=== PATIENT | male | born 1995 ===

== ENCOUNTER 2018-04-10 21:36 | Emergency (ER) | payer BC, SELFPAY ==
[2018-04-10 21:46] VITALS: BP 158/88; PULSE 75; RESP 17; TEMP 36.8; O2SAT 96
[2018-04-10] MEDS: Albuterol HFA 8 GM 60 PUFF INH IH (22:12)
[2018-04-10] MEDS: Inhaler, Assist Device 1 EACH MC (22:14)
--- NOTE | 2018-04-10 22:33 | W.ED.GENAD ---
Discharge Plan Disposition Patient Disposition: HOME Condition: Improving Discharge Details Chief Complaint: RespSymp Clinical Impression: Acute asthma flare Primary Care Provider: None,None ED Provider: Torey Gonzalez Home Meds and New Rx's Prescriptions: Continued albuterol sulfate 90 mcg/actuation Hfa Aerosol Inhaler RF: 0 cetirizine 10 mg Capsule 10 mg PO DAILY RF: 0 Discharge Instructions Instructions: Asthma (ED) Additional Instructions: Use your albuterol inhaler as needed and feel free to return to the emergency department for any new or worsening symptoms otherwise follow-up with your primary care provider if your asthma continues or if you have any further concerns Referrals: Primary Care Provider [Outside] (As needed for reassessment) Discharge Data Discharge Date/Time-TO BE ENTERED AT DEPARTURE: 04/10/18 22:42 Medical Decision Making Patient presenting to the emergency department for chief complaint of asthma flareup. Patient reports that he is here visiting his girlfriend's parents and that they have cats in the home and he is allergic to cats. Patient states that he forgot his inhaler but has been taking Benadryl and Zyrtec but they have not been fully helping. Patient denies any fever chills, cold symptoms, or other medical complaints at this time. Physical exam shows diffuse very wheezes throughout but otherwise unremarkable examination. Patient given albuterol inhaler with spacer and 2 puffs were given. Patient was reassessed and had clear lung sounds throughout and patient stating significant improvement of his symptoms. Patient was encouraged to use inhaler as needed and return for any new or worsening symptoms otherwise I do not feel that patient needs any steroids or other therapy at this time. After discussion of diagnosis and plan of care patient has no further needs, questions, or concerns and states clear understanding to return to the emergency department for any worsening symptoms. HPI General Mode of arrival: ambulatory. Date/Time Provider Initiated Documentation: 04/10/18 21:54. Limitations to Documentation: no limitations. Information obtained by: patient and RN notes reviewed. History of Present Illness 22 year old M presents to the emergency department with the chief complaint of Asthma flare, Quality is described as other (Denies pain or discomfort), Patient started experiencing this day(s) (1) and it has been constant. No relieving factors improve symptom(s), No exacerbating factors reported . Patient notes no other symptoms.. Patient did receive the following treatments prior to arrival, other (Benadryl and Zyrtec) Related Data Home Medications Medication Instructions Recorded Confirmed albuterol sulfate 04/10/18 cetirizine 10 mg PO DAILY 04/10/18 04/10/18 Allergies Allergy/AdvReac Type Severity Reaction Status Date / Time cat dander Allergy Unverified 04/10/18 21:48 dust mites Allergy Uncoded 04/10/18 21:48 General Stated Complaint: RespSymp OCTAVIA: 4 Review of Systems Constitutional Denies body ache(s), Denies chills, Denies fever(s) and Denies headache(s) ENT Denies otalgia, Denies headache(s), Denies nasal congestion, Denies nasal discharge, Denies sinus pressure and Denies sore throat Cardiovascular Denies chest pain and Reports dyspnea Respiratory Reports as per HPI, Denies change in phlegm color, Denies chest congestion, Denies cough, Reports dyspnea, Denies stridor and Reports wheezing Integumentary/Breasts Denies rash Neurologic Denies headache(s) Allergic/Immunologic Reports wheezing PFSH Medical History Asthma (Chronic) Social History Smoking/Tobacco Use Status: Never Exam Const General: cooperative, no acute distress and not ill appearing Orientation: alert, awake and oriented x3 HENMT Mouth: moist mucous membranes Resp Effort & Inspection: normal respiratory effort, able to speak in complete sentences and no respiratory distress Auscultation: wheezes expiratory wheezes and scattered wheezes Cardio Rate: regular rate Rhythm: regular rhythm Heart Sounds: S1 normal and S2 normal Skin General skin exam: no rashes or lesions noted Neuro General: alert, awake, oriented x3, moves all extremities and no focal motor deficits Course Vital Signs Temperature 36.8 C 04/10/18 21:46 Pulse 75 04/10/18 21:46 Respiratory Rate 17 04/10/18 21:46 Blood Pressure 158/88 H 04/10/18 21:46 Pulse Oximetry 96 04/10/18 21:46 Temperature 36.8 C 04/10/18 21:46 Temperature Source Temporal Artery Scan 04/10/18 21:46 Pulse 75 04/10/18 21:46 Respiratory Rate 17 04/10/18 21:46 Respiratory Effort 04/10/18 21:49 Blood Pressure 158/88 H 04/10/18 21:46 Blood Pressure Position Sitting 04/10/18 21:46 Pulse Oximetry 96 04/10/18 21:46 Oxygen Delivery Method Room Air 04/10/18 21:46 Oxygen Flow Rate 0 04/10/18 21:46 Pain Level 0 04/10/18 21:46
--- NOTE | 2018-04-10 22:37 | ED.GENADUL_ITS ---
Discharge Plan Disposition Patient Disposition: HOME Condition: Improving Discharge Details Chief Complaint: RespSymp Clinical Impression: Acute asthma flare Primary Care Provider: None,None ED Provider: Torey Gonzalez Home Meds and New Rx's Prescriptions: Continued albuterol sulfate 90 mcg/actuation Hfa Aerosol Inhaler RF: 0 cetirizine 10 mg Capsule 10 mg PO DAILY RF: 0 Discharge Instructions Instructions: Asthma (ED) Additional Instructions: Use your albuterol inhaler as needed and feel free to return to the emergency department for any new or worsening symptoms otherwise follow-up with your primary care provider if your asthma continues or if you have any further concerns Referrals: Primary Care Provider [Outside] (As needed for reassessment) Discharge Data Discharge Date/Time-TO BE ENTERED AT DEPARTURE: 04/10/18 22:42 Medical Decision Making Patient presenting to the emergency department for chief complaint of asthma flareup. Patient reports that he is here visiting his girlfriend's parents and that they have cats in the home and he is allergic to cats. Patient states that he forgot his inhaler but has been taking Benadryl and Zyrtec but they have not been fully helping. Patient denies any fever chills, cold symptoms, or other medical complaints at this time. Physical exam shows diffuse very wheezes throughout but otherwise unremarkable examination. Patient given albuterol inhaler with spacer and 2 puffs were given. Patient was reassessed and had clear lung sounds throughout and patient stating significant improvement of his symptoms. Patient was encouraged to use inhaler as needed and return for any new or worsening symptoms otherwise I do not feel that patient needs any steroids or other therapy at this time. After discussion of diagnosis and plan of care patient has no further needs, questions, or concerns and states clear understanding to return to the emergency department for any worsening symptoms. HPI General Mode of arrival: ambulatory . Date/Time Provider Initiated Documentation: 04/10/18 21:54 . Limitations to Documentation: no limitations . Information obtained by: patient and RN notes reviewed . History of Present Illness 22 year old M presents to the emergency department with the chief complaint of Asthma flare, Quality is described as other (Denies pain or discomfort), Patient started experiencing this day(s) (1) and it has been constant. No relieving factors improve symptom(s), No exacerbating factors reported . Patient notes no other symptoms.. Patient did receive the following treatments prior to arrival, other (Benadryl and Zyrtec) Related Data Home Medications Medication Instructions Recorded Confirmed albuterol sulfate 04/10/18 cetirizine 10 mg PO DAILY 04/10/18 04/10/18 Allergies Allergy/AdvReac Type Severity Reaction Status Date / Time cat dander Allergy Unverified 04/10/18 21:48 dust mites Allergy Uncoded 04/10/18 21:48 General Stated Complaint: RespSymp OCTAVIA: 4 Review of Systems Constitutional Denies body ache(s), Denies chills, Denies fever(s) and Denies headache(s) ENT Denies otalgia, Denies headache(s), Denies nasal congestion, Denies nasal discharge, Denies sinus pressure and Denies sore throat Cardiovascular Denies chest pain and Reports dyspnea Respiratory Reports as per HPI, Denies change in phlegm color, Denies chest congestion, Denies cough, Reports dyspnea, Denies stridor and Reports wheezing Integumentary/Breasts Denies rash Neurologic Denies headache(s) Allergic/Immunologic Reports wheezing PFSH Medical History Asthma (Chronic) Social History Smoking/Tobacco Use Status: Never Exam Const General: cooperative, no acute distress and not ill appearing Orientation: alert, awake and oriented x3 HENMT Mouth: moist mucous membranes Resp Effort & Inspection: normal respiratory effort, able to speak in complete sentences and no respiratory distress Auscultation: wheezes expiratory wheezes and scattered wheezes Cardio Rate: regular rate Rhythm: regular rhythm Heart Sounds: S1 normal and S2 normal Skin General skin exam: no rashes or lesions noted Neuro General: alert, awake, oriented x3, moves all extremities and no focal motor deficits Course Vital Signs Temperature 36.8 C 04/10/18 21:46 Pulse 75 04/10/18 21:46 Respiratory Rate 17 04/10/18 21:46 Blood Pressure 158/88 H 04/10/18 21:46 Pulse Oximetry 96 04/10/18 21:46 Temperature 36.8 C 04/10/18 21:46 Temperature Source Temporal Artery Scan 04/10/18 21:46 Pulse 75 04/10/18 21:46 Respiratory Rate 17 04/10/18 21:46 Respiratory Effort 04/10/18 21:49 Blood Pressure 158/88 H 04/10/18 21:46 Blood Pressure Position Sitting 04/10/18 21:46 Pulse Oximetry 96 04/10/18 21:46 Oxygen Delivery Method Room Air 04/10/18 21:46 Oxygen Flow Rate 0 04/10/18 21:46 Pain Level 0 04/10/18 21:46
[2018-04-10 22:40] VITALS: BP 140/74; PULSE 75; RESP 17; TEMP 36.8; O2SAT 96
== END 2018-04-10 22:42 | disposition home or self-care (01) ==
LOC: ER 22:54
PROVIDERS: Emergency Provider Nurse Practitioner Family
DX: J45.901 Unspecified asthma with (acute) exacerbation (principal)
CPT/HCPCS: 99283